=== PATIENT | male | born 1950 | race Caucasian/White ===

== ENCOUNTER 2024-12-10 05:34 | Emergency (ER) | payer MEDICARE ==
[~2024-12-10] VITALS: Ht 170.2 cm; Wt 98.2 kg
[~2024-12-10 05:34] MED LIST: LOSA-416 PO; RIVA20TA PO; SIMV80TA2 PO
[2024-12-10] MEDS: morphine 4 MG/ML inj SYRINge IM ONE (07:17)
[2024-12-10] MEDS: ondansetron 4mg rapidly disintigrating tab PO ONE (07:17)
[2024-12-10 09:11] LABS: BILIRUBIN,URINE NEGATIVE (Neg); CLARITY,URINE CLEAR (Clear); COLOR,URINE YELLOW (Yellow); GLUCOSE, URINE NEGATIVE (Neg); KETONES,URINE NEGATIVE (Neg); LEUKOCYTE ESTERASE ,URINE NEGATIVE (Neg); NITRITES, URINE NEGATIVE (Neg); OCCULT BLOOD,URINE NEGATIVE (Neg); PH,URINE 5.5 (4.8-8.0); PROTEIN,URINE NEGATIVE (Neg); UROBILINOGEN,URINE 0.2 E.U/dL (0.2-1.0)
[2024-12-10 09:20] LABS: UA COLLECTION TYPE CLN CATCH MIDSTREAM
[2024-12-10] MEDS: dexamethasone sod phosphate 10mg/ml inj IV STA (09:32)
[2024-12-10] MEDS ORDERED: HYDR-3973 PO (11:03)
[2024-12-10] MEDS ORDERED: IBUP-1984 PO (11:03)
[2024-12-10] MEDS: HYDROcodone/acetaminophen 10/325mg tab PO ONE (11:24)
[2024-12-10 13:02] VITALS: BP 146/80; PULSE 80; RESP 16; TEMP 98.2; O2SAT 98
== END 2024-12-10 13:00 | disposition home or self-care (01) ==
LOC: ER 05:35
DX: M54.40 Lumbago with sciatica, unspecified side (principal); I10 Essential (primary) hypertension; E11.51 Type 2 diabetes mellitus with diabetic peripheral angiopathy without gangrene; I48.91 Unspecified atrial fibrillation; Z87.891 Personal history of nicotine dependence; Z88.0 Allergy status to penicillin; Z98.890 Other specified postprocedural states
CPT/HCPCS: 72131; 81003; 93005; 96372; 96374; 99285; A4615; J1100; J2270